=== PATIENT | male | born 1980 | race Caucasian/White ===

== ENCOUNTER 2018-03-14 08:19 | Emergency (ER) | payer BC ==
[~2018-03-14] VITALS: Ht 167.6 cm; Wt 104.0 kg
[2018-03-14] MEDS ORDERED: SODIUM CHLORIDE 0.9% 1,000 ML IV ONE (10:27)
[2018-03-14] MEDS ORDERED: ONDANSETRON HCL 4MG/2ML INJ IV STA (10:27)
[2018-03-14] MEDS ORDERED: MORPHINE SULFATE 4 MG/ML CPJ (NOT FOR IM USE) IV STA (10:27)
[2018-03-14 11:09] LABS: HEMATOCRIT. 47.3 % (42.0-52.0); HEMOGLOBIN. 15.9 g/dL (14.0-18.0); MEAN CORPUSCULAR HEMOGLOBIN 29.2 pg (28.0-32.0); MEAN CORPUSCULAR VOLUME 86.5 fL (80.0-94.0); MEAN PLATELET VOLUME 8.2 fl (7.4-10.4); PLATELET 272 x1000/uL (130-400); RED BLOOD CELL COUNT 5.46 mill/uL (4.7-6.1); RED CELL DISTRIBUTION WIDTH 13.3 % (11.6-14.6)
[2018-03-14 11:12] LABS: CHLORIDE 104 mEq/L (98-107)
[2018-03-14 11:51] LABS: PLATELET ESTIMATE NORMAL
[2018-03-14] MEDS ORDERED: MORPHINE SULFATE 4 MG/ML CPJ (NOT FOR IM USE) IV ONE (13:45)
[2018-03-14 14:13] LABS: CLARITY URINE TURBID (CLEAR); COLOR URINE DARK YELLOW (YELLOW); KETONES URINE TRACE (NEGATIVE); LEUKOCYTE ESTERASE URINE NEGATIVE (NEGATIVE); NITRITE URINE NEGATIVE (NEGATIVE); OCCULT BLOOD URINE 2+ (NEGATIVE); PH URINE 5.5 (4.5-8.0); PROTEIN URINE TRACE (NEGATIVE); SPECIFIC GRAVITY URINE 1.033 (1.005-1.030)
[2018-03-14] MEDS ORDERED: KETOROLAC 30MG/ML VIAL IV ONE (15:45)
[2018-03-14] MEDS ORDERED: IOHEXOL-300 100 ML BOTTLE ONE (16:11)
[2018-03-14 17:15] VITALS: BP 135/88
== END 2018-03-14 17:28 | disposition home or self-care (01) ==
LOC: ER 10:59
DX: N13.2 Hydronephrosis with renal and ureteral calculous obstruction (principal); K76.0 Fatty (change of) liver, not elsewhere classified; D72.829 Elevated white blood cell count, unspecified; E03.9 Hypothyroidism, unspecified
CPT/HCPCS: 36415; 74177; 80053; 81003; 83605; 83690; 85025; 85610; 96361; 96374; 96375; 96376; 99285; J1885; J2270; J2405; J7030; Q9967